=== PATIENT | male | born 1985 | race American Indian/Alaskan Native ===

== ENCOUNTER 2017-03-05 14:49 | Emergency (ER) | payer OTHER ==
[2017-03-05 15:06] VITALS: BP 112/67
--- NOTE | 2017-03-05 22:34 | Emergency Department Report ---
Entered by ABRAN AKINS, acting as scribe for SUSY OCONNELL NP. - General Chief complaint: Skin Rash Stated complaint: RASH/INSECT BITE Time Seen by Provider: 03/05/17 16:56 Source: patient Mode of arrival: Ambulatory Limitations: No Limitations - History of Present Illness Initial comments: This is a 31 y/o male, nontoxic, well nourished in appearance, no acute signs of distress presents with rash to face and neck x 2 days. Associated symptoms include itching and vesicles but denies SOB, fever, chills, stiff neck, chest pain, shortness of breathe, nausea and vomiting. Patient states rash began under right ear and spread to neck. Patiet stated to notice symptoms after a day at work. 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 Patient stated he believes he was in contact with poison anyi. No alleviating or aggravating factors. NKDA. JORDAN complaint: rash Onset/Timin -: days(s) Location: face Severity: moderate Severity scale (0 -10): 6 Quality: other (itching) Consistency: constant Improves with: none Worsens with: none Context: none Associated symptoms: denies other symptoms, itching, other (denies: SOB, fever, chills, nausea and vomiting) Treatments Prior to Arrival: none - Related Data Previous Rx's Medication Instructions Recorded Last Taken Type Amoxicillin [Trimox CAP] 500 mg PO Q8H #21 capsule 04/17/14 Unknown Rx HYDROcodone/ACETAMINOPHEN [[place] 1 each PO Q6H #10 tablet 04/17/14 Unknown Rx 5/325 Tablet] Promethazine [Phenergan] 25 mg PO Q6H PRN #14 tablet 04/17/14 Unknown Rx Sulfamethoxazole/Trimethoprim 1 each PO BID #14 tablet 03/05/17 Unknown Rx [Bactrim DS TAB] Allergies Allergy/AdvReac Type Severity Reaction Status Date / Time No Known Allergies Allergy Unverified 04/17/14 09:22 Abscess Boil HPI - HPI Chief Complaint: Skin Rash Stated Complaint: RASH/INSECT BITE Time Seen by Provider: 03/05/17 16:10 Home Medications: Previous Rx's Medication Instructions Recorded Last Taken Type Amoxicillin [Trimox CAP] 500 mg PO Q8H #21 capsule 04/17/14 Unknown Rx HYDROcodone/ACETAMINOPHEN [[place] 1 each PO Q6H #10 tablet 04/17/14 Unknown Rx 5/325 Tablet] Promethazine [Phenergan] 25 mg PO Q6H PRN #14 tablet 04/17/14 Unknown Rx Sulfamethoxazole/Trimethoprim 1 each PO BID #14 tablet 03/05/17 Unknown Rx [Bactrim DS TAB] Allergies/Adverse Reactions: Allergies Allergy/AdvReac Type Severity Reaction Status Date / Time No Known Allergies Allergy Unverified 04/17/14 09:22 ED Review of Systems Comment: All other systems reviewed and negative Constitutional: denies: chills, fever Eyes: denies: eye pain, eye discharge, vision change ENT: denies: ear pain, throat pain Respiratory: denies: shortness of breath Cardiovascular: denies: chest pain, palpitations Endocrine: no symptoms reported Gastrointestinal: denies: nausea, vomiting Genitourinary: denies: urgency, dysuria Musculoskeletal: denies: back pain, joint swelling, arthralgia Skin: rash, other (itching) Neurological: denies: headache, weakness, paresthesias Psychiatric: denies: anxiety, depression Hematological/Lymphatic: denies: easy bleeding, easy bruising ED Past Medical Hx - Past Medical History Previous Medical History?: No - Surgical History Past Surgical History?: No - Social History Smoking Status: Never Smoker Substance Use Type: Alcohol - Medications Home Medications: Home Medications Medication Instructions Recorded Confirmed Last Taken Type Amoxicillin [Trimox CAP] 500 mg PO Q8H #21 capsule 04/17/14 Unknown Rx HYDROcodone/ACETAMINOPHEN [[place] 1 each PO Q6H #10 tablet 04/17/14 Unknown Rx 5/325 Tablet] Promethazine [Phenergan] 25 mg PO Q6H PRN #14 tablet 04/17/14 Unknown Rx Sulfamethoxazole/Trimethoprim 1 each PO BID #14 tablet 03/05/17 Unknown Rx [Bactrim DS TAB] ED Physical Exam - General Limitations: No Limitations General appearance: alert, in no apparent distress - Head Head exam: Present: atraumatic, normocephalic, normal inspection - Eye Eye exam: Present: normal appearance, PERRL, EOMI. Absent: scleral icterus, conjunctival injection, nystagmus, periorbital swelling, periorbital tenderness Pupils: Present: normal accommodation - ENT ENT exam: Present: normal exam, normal orophraynx, mucous membranes moist, TM's normal bilaterally, normal external ear exam - Neck Neck exam: Present: normal inspection, full ROM. Absent: tenderness, meningismus, lymphadenopathy, thyromegaly - Respiratory Respiratory exam: Present: normal lung sounds bilaterally. Absent: respiratory distress, wheezes, rales, rhonchi, stridor, chest wall tenderness, accessory muscle use, decreased breath sounds, prolonged expiratory - Cardiovascular Cardiovascular Exam: Present: regular rate, normal rhythm, normal heart sounds. Absent: bradycardia, tachycardia, irregular rhythm, systolic murmur, diastolic murmur, rubs, gallop - GI/Abdominal GI/Abdominal exam: Present: soft, normal bowel sounds. Absent: distended, tenderness, guarding, rebound, rigid, diminished bowel sounds, hyperactive bowel sounds, hypoactive bowel sounds, organomegaly - Rectal Rectal exam: Present: deferred - Extremities Exam Extremities exam: Present: normal inspection, full ROM, normal capillary refill. Absent: tenderness, pedal edema, joint swelling, calf tenderness - Back Exam Back exam: Present: normal inspection, full ROM. Absent: tenderness, CVA tenderness (R), CVA tenderness (L), muscle spasm, paraspinal tenderness, vertebral tenderness, rash noted - Neurological Exam Neurological exam: Present: alert, oriented X3, CN II-XII intact, normal gait, reflexes normal - Psychiatric Psychiatric exam: Present: normal affect, normal mood - Skin Skin exam: Present: warm, rash (strike like appereance in the neck to the ear), vesicles. Absent: cyanosis, diaphoretic, erythema ED Course Vital Signs 03/05/17 15:03 Temperature 98.2 F Pulse Rate 73 Respiratory 18 Rate Blood Pressure 112/67 O2 Sat by Pulse 100 Oximetry - Reevaluation(s) Reevaluation #1: 03/05/17 17:30 Patient is speaking in full sentences with no signs of distress noted. ED Disposition Clinical Impression: Poison anyi Contact dermatitis Qualifiers: Contact dermatitis type: unspecified Contact dermatitis trigger: unspecified trigger Qualified Code(s): L25.9 - Unspecified contact dermatitis, unspecified cause Disposition: DC-01 TO HOME OR SELFCARE Is pt being admited?: No Does the pt Need Aspirin: No Condition: Stable Instructions: Sulfamethoxazole/Trimethoprim (By mouth), Poison Anyi (ED), Contact Dermatitis (ED) Additional Instructions: Follow-up with your primary care doctor in 3-5 days or if symptoms worsen and continue return to the emergency room as soon as possible. Prescriptions: Sulfamethoxazole/Trimethoprim [Bactrim DS TAB] 1 each PO BID #14 tablet Referrals: PRIMARY CARE, [Primary Care Provider] - 3-5 Days SHANNON PAUL MD [Staff Physician] - 3-5 Days [facility] [Outside] - 3-5 Days [facility] [Outside] - 3-5 Days Forms: Work/School Release Form(ED) This documentation as recorded by the MABLE barrios ELIZABETH,accurately reflects the service I personally performed and the decisions made by me,SUSY OCONNELL, LUGGAGE LINER.
== END 2017-03-05 17:46 | disposition home or self-care (01) ==
LOC: ED 14:49
DX: L23.7 Allergic contact dermatitis due to plants, except food (principal); L25.9 Unspecified contact dermatitis, unspecified cause
CPT/HCPCS: 99282